=== PATIENT | male | born 1950 | race African-American/Black ===

== ENCOUNTER 2024-09-30 21:47 | Inpatient (IN) | payer OTHER ==
[2024-09-30] MEDS ORDERED: Acetaminophen 325 MG TAB PO PRN (22:16)
[2024-09-30] MEDS ORDERED: Ondansetron ODT 4 MG TAB PO PRN (22:16)
[2024-09-30] MEDS ORDERED: Ondansetron PF 4 MG/2 ML Vial IVP PRN (22:16)
[2024-09-30] MEDS ORDERED: Acetaminophen 650 MG Suppository PR PRN (22:16)
[2024-09-30] MEDS ORDERED: Calcium Carbonate 500 MG ChewTAB PO PRN (22:16)
[2024-09-30 23:05] LABS: #Basophils Less than 0.03 10x3/uL (0.0-0.2); %Basophils 0.3 % (0.0-1.0); %Eosinophils 0.8 % (0.0-10.0); %Lymphocytes 17.4 % (21.0-51.0); %Monocytes 9.6 % (0.0-10.0); %Neutrophils 71.6 % (42.0-75.0); Hemoglobin 6.5 g/dL (14.0-18.0); Mean Corpuscular HGB CONC 29.5 g/dL (32.0-36.0); Mean Corpuscular Hemoglobin 26.9 pg (27.0-31.0); Mean Corpuscular Volume 90.9 fL (78.0-98.0); Platelet Count 228 10x3/uL (130-400); RBC Distribution Width 18.6 % (11.5-14.5); Red Blood Cell (RBC) Count 2.42 mill/uL (4.70-6.10)
[2024-09-30 23:23] LABS: ALT (SGPT) 11 U/L (Less than 45); AST (SGOT) 26 U/L (11-34); Albumin 3.1 g/dL (3.1-4.5); Alkaline Phosphatase 58 U/L (40-110); Anion Gap 13 mmol/L (10-20); BUN (Urea Nitrogen) 22 mg/dL (8.4-25.7); Bilirubin, Total 0.8 mg/dL (0.3-1.2); Calc. Creatinine Clearance 0 mL/min (70-130); Calcium 8.5 mg/dL (7.8-10.44); Carbon Dioxide 25 mmol/L (23-31); Chloride 104 mmol/L (98-107); Estimated GFR 41; Globulin 2.8 g/dL (2.4-3.5); Glucose 110 mg/dL (83-110); Potassium 4.4 mmol/L (3.5-5.1); Protein, Total 5.9 g/dL (5.8-8.1); Sodium 138 mmol/L (136-145)
[2024-09-30 23:33] VITALS: BMI 38.0
[2024-10-01] MEDS ORDERED: Polyvinyl Alcohol 1.4%/Povidone 0.6% Opth Drops EA EYE PRN (04:22)
[2024-10-01] MEDS: Levothyroxine Sodium 25 MCG TAB PO SCH (05:33)
[2024-10-01] MEDS ORDERED: metFORMIN 500 MG TAB PO SCH (08:00)
[2024-10-01] MEDS: Famotidine/PF 20 mg/2ml Vial SLOW IVP SCH (09:16)
[2024-10-01] MEDS: Losartan 25 MG TAB PO SCH (09:24)
[2024-10-01] MEDS: Famotidine 20 MG TAB PO SCH (09:24)
[2024-10-01] MEDS: Furosemide 40 MG TAB PO SCH (09:25)
[2024-10-01] MEDS: Hydroxychloroquine Sulfate 200 MG TAB PO SCH (09:25)
[2024-10-01] MEDS: Venlafaxine HCl XR 75 MG CAP PO SCH (09:25)
[2024-10-01] MEDS: Insulin NPH Human Isophane 100 UNITS/ML (10 ML VIAL) SQ SCH ×2 (09:25→20:52)
[2024-10-01] MEDS: Carvedilol 6.25 MG TAB PO SCH (09:25)
[2024-10-01 12:18] LABS: Hematocrit 24.7 % (42.0-52.0); Hemoglobin 7.3 g/dL (14.0-18.0)
[2024-10-01 12:26] LABS: INR-International Normal Ratio 1.4
[2024-10-01] MEDS: Atorvastatin Calcium 40 MG TAB PO SCH (20:49)
[2024-10-01] MEDS: Latanoprost 0.005% Ophth Soln 2.5 ml Bottle EA EYE SCH (20:51)
[2024-10-02 04:36] LABS: Hematocrit 24.1 % (42.0-52.0); Mean Corpuscular Hemoglobin 25.7 pg (27.0-31.0); Mean Corpuscular Volume 88.6 fL (78.0-98.0); Platelet Count 205 10x3/uL (130-400); RBC Distribution Width 20.5 % (11.5-14.5); Red Blood Cell (RBC) Count 2.72 mill/uL (4.70-6.10)
[2024-10-02 05:21] LABS: Anion Gap 12 mmol/L (10-20); BUN (Urea Nitrogen) 16 mg/dL (8.4-25.7); Calc. Creatinine Clearance 83 mL/min (70-130); Calcium 8.3 mg/dL (7.8-10.44); Carbon Dioxide 25 mmol/L (23-31); Chloride 109 mmol/L (98-107); Estimated GFR 62; Glucose 109 mg/dL (83-110); Potassium 4.4 mmol/L (3.5-5.1); Sodium 142 mmol/L (136-145)
[2024-10-02] MEDS: GoLYTELY 4,000 ml Bottle PO SCH (19:00)
[2024-10-02 21:49] LABS: Hematocrit 28.9 % (42.0-52.0); Hemoglobin 8.4 g/dL (14.0-18.0)
[2024-10-03 05:04] LABS: Hemoglobin 8.4 g/dL (14.0-18.0); Mean Corpuscular Hemoglobin 26.6 pg (27.0-31.0); Mean Corpuscular Volume 88.6 fL (78.0-98.0); Platelet Count 202 10x3/uL (130-400); Red Blood Cell (RBC) Count 3.16 mill/uL (4.70-6.10)
[2024-10-03] MEDS: Dextrose 50% Abboject 50 ML SYRINGE ONE (05:20)
[2024-10-03 05:22] LABS: Anion Gap 11 mmol/L (10-20); BUN (Urea Nitrogen) 12 mg/dL (8.4-25.7); Calc. Creatinine Clearance 88 mL/min (70-130); Calcium 8.5 mg/dL (7.8-10.44); Carbon Dioxide 27 mmol/L (23-31); Chloride 109 mmol/L (98-107); Estimated GFR 67; Glucose 58 mg/dL (83-110); Potassium 4.3 mmol/L (3.5-5.1); Sodium 143 mmol/L (136-145)
[2024-10-03] MEDS ORDERED: Ipratropium/Albuterol 3 ML NEB ONE (07:56)
[2024-10-03] MEDS ORDERED: fentaNYL 50 mcg/mL 1 mL Vial ONE (08:02)
[2024-10-03] MEDS ORDERED: Etomidate 40 MG (20 mL) VIAL ONE (08:02)
[2024-10-03] MEDS ORDERED: PROPOFOL 20 ML ONE (08:02)
[2024-10-03] MEDS ORDERED: Lidocaine 2% PF 5 ML VIAL ONE (08:12)
[2024-10-03] MEDS ORDERED: Glycopyrrolate 0.2 MG/ML 5 ML SYRINGE ONE (08:15)
[2024-10-03] MEDS ORDERED: Calcium Chloride 1 GM/10 ML Abboject SYRINGE ONE (08:15)
[2024-10-03] MEDS ORDERED: PHENYLEPHRINE-NS 100 MCG/ML 10 ML SYRINGE ONE (08:36)
[2024-10-03] MEDS ORDERED: Ondansetron HCl/PF 4 MG/2 ML Vial IVP PRN (08:47)
[2024-10-03] MEDS ORDERED: Morphine Sulfate 2 MG/ML SYRINGE SLOW IVP PRN (08:47)
[2024-10-03] MEDS: Pantoprazole 40 MG DR.TAB PO SCH (11:51)
[2024-10-03 14:24] LABS: Hematocrit 29.7 % (42.0-52.0); Hemoglobin 8.7 g/dL (14.0-18.0)
[2024-10-03] MEDS: Timolol 0.5% Ophth Soln 5 ml Bottle EA EYE SCH (20:20)
[2024-10-04 05:37] LABS: Hematocrit 27.7 % (42.0-52.0); Mean Corpuscular HGB CONC 28.9 g/dL (32.0-36.0); Mean Corpuscular Hemoglobin 26.5 pg (27.0-31.0); Mean Corpuscular Volume 91.7 fL (78.0-98.0); Mean Platelet Volume 11.9 fL (7.4-10.4); Platelet Count 206 10x3/uL (130-400); RBC Distribution Width 18.8 % (11.5-14.5); Red Blood Cell (RBC) Count 3.02 mill/uL (4.70-6.10)
[2024-10-04] MEDS: Pantoprazole 40 MG DR.TAB PO SCH (08:26)
[2024-10-04 11:56] VITALS: BP 106/57; TEMP 98.4
[2024-10-04 12:30] LABS: Hematocrit 28.1 % (42.0-52.0); Hemoglobin 8.1 g/dL (14.0-18.0)
== END 2024-10-04 14:50 | DRG 394 ==
LOC: 2NO 21:47 → EEVIPCON 21:47
PROVIDERS: ADMIT Family Medicine; ATTEND Internal Medicine
PROC: 30233N1 Transfusion of Nonautologous Red Blood Cells into Peripheral Vein, Percutaneous Approach (ICD-10-PCS; 2024-10-01)
PROC: 0DB98ZX Excision of Duodenum, Via Natural or Artificial Opening Endoscopic, Diagnostic (ICD-10-PCS; principal; 2024-10-03)
PROC: 0W3P8ZZ Control Bleeding in Gastrointestinal Tract, Via Natural or Artificial Opening Endoscopic (ICD-10-PCS; 2024-10-03)
DX: K63.81 Dieulafoy lesion of intestine (principal); I13.0 Hypertensive heart and chronic kidney disease with heart failure and stage 1 through stage 4 chronic kidney disease, or unspecified chronic kidney disease; I48.92 Unspecified atrial flutter; D50.9 Iron deficiency anemia, unspecified; E11.22 Type 2 diabetes mellitus with diabetic chronic kidney disease; E11.51 Type 2 diabetes mellitus with diabetic peripheral angiopathy without gangrene; G47.33 Obstructive sleep apnea (adult) (pediatric); N18.9 Chronic kidney disease, unspecified; D63.1 Anemia in chronic kidney disease; I50.9 Heart failure, unspecified; E03.9 Hypothyroidism, unspecified; K64.8 Other hemorrhoids; R55 Syncope and collapse; D64.9 Anemia, unspecified; I25.10 Atherosclerotic heart disease of native coronary artery without angina pectoris; Z79.01 Long term (current) use of anticoagulants; Z79.82 Long term (current) use of aspirin; Z79.84 Long term (current) use of oral hypoglycemic drugs; Z79.899 Other long term (current) drug therapy; Z86.718 Personal history of other venous thrombosis and embolism
CPT/HCPCS: 36415; 36416; 36430; 71045; 74177; 80048; 80053; 83880; 84484; 85014; 85018; 85025; 85027; 85610; 85730; 86850; 86900; 86901; 93005; 96374; 96375; C1889; J0612; J1815; J1940; J2470; J2704; J3010; J7620; J7999; P9016; Q9967

== ENCOUNTER 2025-04-22 18:28 | Inpatient (IN) | payer OTHER ==
[2025-04-22 20:05] VITALS: BMI 34.0
[2025-04-22] MEDS ORDERED: Glucagon 1 MG/ML KIT IM PRN (20:58)
[2025-04-22] MEDS ORDERED: Dextrose 50% Abboject 50 ML SYRINGE SLOW IVP PRN (20:58)
[2025-04-22] MEDS ORDERED: Melatonin 3 MG TAB PO PRN (21:01)
[2025-04-22] MEDS ORDERED: Nitroglycerin 0.4 MG TAB (25 Tab Bottle) SL PRN (21:07)
[2025-04-22] MEDS ORDERED: Acetaminophen 325 MG TAB PO PRN (21:12)
[2025-04-22] MEDS: Famotidine 20 MG TAB PO SCH (21:21)
[2025-04-22 22:27] LABS: #Basophils Less than 0.03 10x3/uL (0.0-0.2); #Eosinophils Less than 0.03 10x3/uL (0.0-0.7); #Monocytes 1.07 10x3/uL (0.11-0.59); #Neutrophils 6.21 10x3/uL (1.40-6.50); %Basophils 0.2 % (0.0-1.0); %Eosinophils 0.0 % (0.0-10.0); %Lymphocytes 9.6 % (21.0-51.0); %Monocytes 13.2 % (0.0-10.0); %Neutrophils 76.6 % (42.0-75.0); Hematocrit 28.8 % (42.0-52.0); Hemoglobin 8.5 g/dL (14.0-18.0); Mean Corpuscular Hemoglobin 28.3 pg (27.0-31.0); Mean Corpuscular Volume 96.0 fL (78.0-98.0); Platelet Count 309 10x3/uL (130-400); Red Blood Cell (RBC) Count 3.00 mill/uL (4.70-6.10); White Blood Cell (WBC) Count 8.11 10x3/uL (4.8-10.8)
[2025-04-22 22:46] LABS: ALT (SGPT) 13 U/L (Less than 45); AST (SGOT) 34 U/L (11-34); Albumin 3.2 g/dL (3.1-4.5); Alkaline Phosphatase 82 U/L (40-110); Anion Gap 13 mmol/L (10-20); BUN (Urea Nitrogen) 25 mg/dL (8.4-25.7); Bilirubin, Total 0.2 mg/dL (0.3-1.2); Calc. Creatinine Clearance 67 mL/min (70-130); Calcium 12.0 mg/dL (7.8-10.44); Carbon Dioxide 29 mmol/L (23-31); Chloride 101 mmol/L (98-107); Globulin 3.2 g/dL (2.4-3.5); Glucose 133 mg/dL (83-110); Potassium 4.2 mmol/L (3.5-5.1); Sodium 139 mmol/L (136-145)
[2025-04-22] MEDS: Carvedilol 6.25 MG TAB PO SCH (23:21)
[2025-04-23] MEDS: Carvedilol 6.25 MG TAB PO SCH (10:21)
[2025-04-23] MEDS: Ferrous Sulfate 325 MG TAB PO SCH (10:21)
[2025-04-23] MEDS: Pantoprazole 40 MG DR.TAB PO SCH (10:21)
[2025-04-23] MEDS: Aspirin 81 mg Enteric Coated Tablet PO SCH (10:21)
[2025-04-23] MEDS: Insulin NPH Human Isophane 100 UNITS/ML (10 ML VIAL) SQ SCH ×2 (10:22→21:16)
[2025-04-23 16:04] LABS: Hematocrit 29.5 % (42.0-52.0); Hemoglobin 8.4 g/dL (14.0-18.0); Platelet Count 320 10x3/uL (130-400)
[2025-04-23] MEDS: Communication Order-Pharmacy FS ONE (16:58)
[2025-04-23] MEDS: Enoxaparin 100 MG (1 mL) SYRINGE SC SCH (21:14)
[2025-04-24] MEDS: Ondansetron PF 4 MG/2 ML Vial IVP PRN (08:23)
[2025-04-24] MEDS: Senokot S 8.6-50 MG TAB PO SCH (20:42)
[2025-04-25] MEDS: Acetaminophen/Codeine 30-300mg Tablet PO PRN (00:22)
[2025-04-25 05:46] LABS: Iron 22 ug/dL (65-175); Iron Binding Capacity, Total 268 mcg/dL (261-462)
[2025-04-25] MEDS: Senokot S 8.6-50 MG TAB PO SCH (11:50)
[2025-04-25] MEDS: Sodium Ferric Gluconate 250 MG in Sodium Chloride 0.9% 250 ML 250 ML IVPB SCH (11:51)
[2025-04-25 13:46] LABS: #Basophils Less than 0.03 10x3/uL (0.0-0.2); #Eosinophils Less than 0.03 10x3/uL (0.0-0.7); #Monocytes 1.03 10x3/uL (0.11-0.59); #Neutrophils 8.03 10x3/uL (1.40-6.50); %Basophils 0.1 % (0.0-1.0); %Eosinophils 0.0 % (0.0-10.0); %Lymphocytes 8.6 % (21.0-51.0); %Monocytes 10.3 % (0.0-10.0); %Neutrophils 80.5 % (42.0-75.0); Hematocrit 31.1 % (42.0-52.0); Hemoglobin 8.6 g/dL (14.0-18.0); Mean Corpuscular Hemoglobin 27.6 pg (27.0-31.0); Mean Corpuscular Volume 99.7 fL (78.0-98.0); Platelet Count 351 10x3/uL (130-400); Red Blood Cell (RBC) Count 3.12 mill/uL (4.70-6.10); White Blood Cell (WBC) Count 9.98 10x3/uL (4.8-10.8)
[2025-04-25 14:02] LABS: Anion Gap 17 mmol/L (10-20); BUN (Urea Nitrogen) 32 mg/dL (8.4-25.7); Calc. Creatinine Clearance 60 mL/min (70-130); Calcium 13.1 mg/dL (7.8-10.44); Carbon Dioxide 24 mmol/L (23-31); Chloride 101 mmol/L (98-107); Glucose 118 mg/dL (83-110); Potassium 5.4 mmol/L (3.5-5.1); Sodium 137 mmol/L (136-145)
[2025-04-25 14:49] LABS: Anisocytosis SLIGHT = 6-15 cells HPF (0-5); Burr Cells SLIGHT = 2-5 cells HPF (0-1); Macrocytosis MODERATE=16-30 cells HPF (0-5); Platelet Adequacy Comment Platelets Normal; Polychromasia SLIGHT = 2-3 cells HPF (0-2)
[2025-04-25 18:43] LABS: ALT (SGPT) 19 U/L (Less than 45); AST (SGOT) 32 U/L (11-34); Albumin 3.1 g/dL (3.1-4.5); Alkaline Phosphatase 101 U/L (40-110); Bilirubin, Direct 0.2 mg/dL (0.1-0.3); Bilirubin, Total 0.4 mg/dL (0.3-1.2)
[2025-04-26 05:57] LABS: Hematocrit 27.4 % (42.0-52.0); Hemoglobin 7.7 g/dL (14.0-18.0); Platelet Count 318 10x3/uL (130-400)
[2025-04-26 06:02] LABS: #Basophils Less than 0.03 10x3/uL (0.0-0.2); #Eosinophils Less than 0.03 10x3/uL (0.0-0.7); #Monocytes 1.16 10x3/uL (0.11-0.59); #Neutrophils 8.10 10x3/uL (1.40-6.50); %Basophils 0.1 % (0.0-1.0); %Eosinophils 0.0 % (0.0-10.0); %Lymphocytes 5.2 % (21.0-51.0); %Monocytes 11.8 % (0.0-10.0); %Neutrophils 82.4 % (42.0-75.0); Hematocrit 26.8 % (42.0-52.0); Hemoglobin 7.5 g/dL (14.0-18.0); Mean Corpuscular Hemoglobin 27.5 pg (27.0-31.0); Mean Corpuscular Volume 98.2 fL (78.0-98.0); Platelet Count 328 10x3/uL (130-400); Red Blood Cell (RBC) Count 2.73 mill/uL (4.70-6.10); White Blood Cell (WBC) Count 9.83 10x3/uL (4.8-10.8)
[2025-04-26 06:15] LABS: ALT (SGPT) 21 U/L (Less than 45); AST (SGOT) 32 U/L (11-34); Albumin 2.9 g/dL (3.1-4.5); Alkaline Phosphatase 100 U/L (40-110); Anion Gap 15 mmol/L (10-20); BUN (Urea Nitrogen) 45 mg/dL (8.4-25.7); Bilirubin, Total 0.3 mg/dL (0.3-1.2); Calc. Creatinine Clearance 35 mL/min (70-130); Calcium 12.0 mg/dL (7.8-10.44); Carbon Dioxide 26 mmol/L (23-31); Chloride 101 mmol/L (98-107); Globulin 3.5 g/dL (2.4-3.5); Glucose 148 mg/dL (83-110); Potassium 5.6 mmol/L (3.5-5.1); Sodium 136 mmol/L (136-145)
[2025-04-26 06:45] LABS: Burr Cells SLIGHT = 2-5 cells HPF (0-1); Platelet Adequacy Comment Platelets Normal; Poikilocytosis SLIGHT = 6-15 cells HPF (0-5); Polychromasia SLIGHT = 2-3 cells HPF (0-2); Schistocytes SLIGHT = 2-5 cells HPF (0-1)
[2025-04-26] MEDS: Famotidine 20 MG TAB PO SCH (08:45)
[2025-04-26 11:09] LABS: Anion Gap 20 mmol/L (10-20); BUN (Urea Nitrogen) 49 mg/dL (8.4-25.7); Calc. Creatinine Clearance 31 mL/min (70-130); Calcium 11.8 mg/dL (7.8-10.44); Carbon Dioxide 22 mmol/L (23-31); Chloride 102 mmol/L (98-107); Glucose 152 mg/dL (83-110); Potassium 5.7 mmol/L (3.5-5.1); Sodium 138 mmol/L (136-145)
[2025-04-26] MEDS: LOKELMA 10 GM PACKET PO SCH (11:16)
[2025-04-26] MEDS: Furosemide 40 MG (4 mL) VIAL SLOW IVP SCH (13:12)
[2025-04-26 14:22] LABS: Anion Gap 15 mmol/L (10-20); BUN (Urea Nitrogen) 51 mg/dL (8.4-25.7); Calc. Creatinine Clearance 31 mL/min (70-130); Calcium 11.5 mg/dL (7.8-10.44); Carbon Dioxide 22 mmol/L (23-31); Chloride 102 mmol/L (98-107); Glucose 139 mg/dL (83-110); Potassium 5.4 mmol/L (3.5-5.1); Sodium 134 mmol/L (136-145)
[2025-04-26 17:21] LABS: RBC Count-Automated (BF) 543173 /cu.mm; WBC/Nucleated-Auto (BF) 10005 /cu.mm
[2025-04-26 17:41] LABS: Fluid, Triglycerides 67.0 mg/dL (Not Available); Pleural Fluid, Amylase 72.0 U/L (Not Available); Pleural Fluid, Glucose 107.0 mg/dL; Pleural Fluid, LDH 1413.0 U/L (Not Available); Pleural Fluid, Protein 4.8 g/dL
[2025-04-26 17:44] LABS: ALT (SGPT) 37 U/L (Less than 45); AST (SGOT) 52 U/L (11-34); Albumin 3.2 g/dL (3.1-4.5); Alkaline Phosphatase 108 U/L (40-110); Anion Gap 19 mmol/L (10-20); BUN (Urea Nitrogen) 53 mg/dL (8.4-25.7); Bilirubin, Total 0.4 mg/dL (0.3-1.2); Calc. Creatinine Clearance 28 mL/min (70-130); Calcium 11.8 mg/dL (7.8-10.44); Carbon Dioxide 20 mmol/L (23-31); Chloride 101 mmol/L (98-107); Globulin 3.3 g/dL (2.4-3.5); Glucose 133 mg/dL (83-110); Potassium 5.5 mmol/L (3.5-5.1); Sodium 134 mmol/L (136-145)
[2025-04-26 18:27] LABS: BF Segmented Neutrophils 33 %; Cell Count Non Hematic 52 %
[2025-04-26] MEDS ORDERED: Enoxaparin 100 MG (1 mL) SYRINGE SC SCH (21:00)
[2025-04-26] MEDS: Acetaminophen 325 MG TAB PO PRN (21:40)
[2025-04-26] MEDS: Calcitonin,Salmon,Synthetic 400 UNITS/2 ML SC SCH (21:44)
[2025-04-27 05:35] LABS: #Basophils Less than 0.03 10x3/uL (0.0-0.2); #Eosinophils Less than 0.03 10x3/uL (0.0-0.7); #Monocytes 1.07 10x3/uL (0.11-0.59); #Neutrophils 9.23 10x3/uL (1.40-6.50); %Basophils 0.1 % (0.0-1.0); %Eosinophils 0.0 % (0.0-10.0); %Lymphocytes 3.7 % (21.0-51.0); %Monocytes 9.9 % (0.0-10.0); %Neutrophils 85.7 % (42.0-75.0); Hematocrit 26.3 % (42.0-52.0); Hemoglobin 7.6 g/dL (14.0-18.0); Mean Corpuscular Hemoglobin 27.3 pg (27.0-31.0); Mean Corpuscular Volume 94.6 fL (78.0-98.0); Platelet Count 343 10x3/uL (130-400); Red Blood Cell (RBC) Count 2.78 mill/uL (4.70-6.10); White Blood Cell (WBC) Count 10.77 10x3/uL (4.8-10.8)
[2025-04-27 05:51] LABS: ALT (SGPT) 31 U/L (Less than 45); AST (SGOT) 43 U/L (11-34); Albumin 2.7 g/dL (3.1-4.5); Alkaline Phosphatase 96 U/L (40-110); Anion Gap 13 mmol/L (10-20); BUN (Urea Nitrogen) 54 mg/dL (8.4-25.7); Bilirubin, Total 0.4 mg/dL (0.3-1.2); Calc. Creatinine Clearance 36 mL/min (70-130); Calcium 11.0 mg/dL (7.8-10.44); Carbon Dioxide 28 mmol/L (23-31); Chloride 101 mmol/L (98-107); Globulin 3.3 g/dL (2.4-3.5); Glucose 137 mg/dL (83-110); Potassium 4.7 mmol/L (3.5-5.1); Sodium 137 mmol/L (136-145)
[2025-04-27] MEDS: Furosemide 40 MG (4 mL) VIAL SLOW IVP SCH (08:44)
[2025-04-27 12:47] VITALS: TEMP 97.5
[2025-04-27] MEDS: Calcitonin,Salmon,Synthetic 400 UNITS/2 ML SC SCH (20:45)
[2025-04-27 21:09] VITALS: BP 123/69
[2025-04-28] MEDS ORDERED: Furosemide 40 MG (4 mL) VIAL SLOW IVP SCH (09:00)
== END 2025-04-27 23:00 | disposition short-term general hospital (02) | DRG 180 ==
LOC: MSONC 19:09 → EEVIPCON 19:09
PROVIDERS: ADMIT Family Medicine; ATTEND Student in an Organized Health Care Education/Training Program
PROC: 0W993ZZ Drainage of Right Pleural Cavity, Percutaneous Approach (ICD-10-PCS; principal; 2025-04-26)
DX: C78.1 Secondary malignant neoplasm of mediastinum (principal); J96.01 Acute respiratory failure with hypoxia; C78.01 Secondary malignant neoplasm of right lung; C79.51 Secondary malignant neoplasm of bone; Z66 Do not resuscitate; Z51.5 Encounter for palliative care; C78.7 Secondary malignant neoplasm of liver and intrahepatic bile duct; C38.3 Malignant neoplasm of mediastinum, part unspecified; J91.8 Pleural effusion in other conditions classified elsewhere; N17.9 Acute kidney failure, unspecified; I5A Non-ischemic myocardial injury (non-traumatic); I48.92 Unspecified atrial flutter; I42.8 Other cardiomyopathies; F33.9 Major depressive disorder, recurrent, unspecified; I13.0 Hypertensive heart and chronic kidney disease with heart failure and stage 1 through stage 4 chronic kidney disease, or unspecified chronic kidney disease; N18.4 Chronic kidney disease, stage 4 (severe); C78.02 Secondary malignant neoplasm of left lung; G89.3 Neoplasm related pain (acute) (chronic); I50.9 Heart failure, unspecified; I25.10 Atherosclerotic heart disease of native coronary artery without angina pectoris; I48.91 Unspecified atrial fibrillation; M35.00 Sjogren syndrome, unspecified; E11.51 Type 2 diabetes mellitus with diabetic peripheral angiopathy without gangrene; K59.00 Constipation, unspecified; I34.0 Nonrheumatic mitral (valve) insufficiency; I36.1 Nonrheumatic tricuspid (valve) insufficiency; F41.9 Anxiety disorder, unspecified; E83.52 Hypercalcemia; E11.22 Type 2 diabetes mellitus with diabetic chronic kidney disease; E03.9 Hypothyroidism, unspecified; Z98.890 Other specified postprocedural states; Z88.8 Allergy status to other drugs, medicaments and biological substances; Z87.891 Personal history of nicotine dependence; R63.4 Abnormal weight loss; N40.0 Benign prostatic hyperplasia without lower urinary tract symptoms; E11.40 Type 2 diabetes mellitus with diabetic neuropathy, unspecified; Z86.718 Personal history of other venous thrombosis and embolism; D63.0 Anemia in neoplastic disease; D63.1 Anemia in chronic kidney disease; E78.5 Hyperlipidemia, unspecified; E87.5 Hyperkalemia; Z68.34 Body mass index [BMI] 34.0-34.9, adult
CPT/HCPCS: 36415; 36416; 71045; 80048; 80053; 80076; 82042; 82150; 82306; 82728; 82945; 83540; 83550; 83615; 83970; 83986; 84157; 84478; 85014; 85018; 85025; 85049; 85060; 87116; 87206; 88112; 88305; 89051; 93306; 93970; J0630; J1650; J1815; J1940; J2270; J2405; J2916; J7030; J7050; Q0162